=== PATIENT | male | born 1945 | race African-American/Black ===

== ENCOUNTER 2019-03-08 11:55 | Day surgery (SDC) | payer MEDICARE ==
[2019-03-07 13:34] VITALS: BMI 30.2
[~2019-03-08 11:55] MED LIST: Dexamethasone 20 MG/5 ML VIAL ONE; Lidocaine 1% PF 5 ML VIAL ONE; PROPOFOL 200 MG/20 ML VIAL ONE; Succinylcholine Chloride 20 MG/ML 10 ml SYRINGE FS ONE
[2019-03-08] MEDS ORDERED: Bacitracin Zinc Ointment 30 gm TUBE ONE (12:38)
[2019-03-08] MEDS ORDERED: Lidocaine 1% w/Epinephrine 1:100K 20 ML VIAL ONE (12:38)
[2019-03-08] MEDS ORDERED: Fentanyl 100 MCG/2 ML VIAL ONE ×2 (12:48→14:48)
[2019-03-08 13:04] LABS: Hemoglobin 17.4 g/dL (14.0-18.0)
[2019-03-08] MEDS ORDERED: Dexamethasone 20 MG/5 ML VIAL ONE (13:35)
--- NOTE | 2019-03-10 09:40 | OP ---
DATE OF PROCEDURE: 03/08/2019 PREOPERATIVE DIAGNOSES: 1. Thyroglossal duct cyst. 2. Dysphagia. POSTOPERATIVE DIAGNOSES: 1. Thyroglossal duct cyst. 2. Dysphagia. PROCEDURE PERFORMED: Excision of thyroglossal duct cyst ([place] procedure). ESTIMATED BLOOD LOSS: Less than 5 mL. COMPLICATIONS: None. ANESTHESIA: GETA. DESCRIPTION OF PROCEDURE: The patient was taken to the operating room and placed supine on the table. General endotracheal anesthesia was obtained by the anesthesia staff. Tube was secured in the left lower lip. A shoulder roll was placed. The patient's head was gently placed in extension. Following this, 8 mL of 1% lidocaine with 1:100,000 epinephrine was injected into the area overlying the large thyroglossal duct cyst. Following this, the patient was prepped and draped in standard surgical fashion. Following this, a horizontal incision was made in the submental skin crease overlying the thyroglossal duct cyst. Dissection was carried down the midline. The strap muscles were in the midline, a large 3 cm squared cyst was encountered with the fibrotic capsule. It was noted to be coursing superior to the hyoid bone. Bone rongeurs were used to remove the central portion of the hyoid bone and the cyst track terminated into a scar band into the base of tongue musculature. A silk stitch was placed and this was suture ligated and the thyroglossal duct cyst along with the mid portion of the hyoid bone was removed as specimen. Hemostasis was controlled. A small rubber was placed as a drain and the platysmal layer and subcuticular layer were reapproximated using Monocryl stitches. The skin was closed using Prolene stitches. The patient tolerated the procedure well. Job ID: [id number]
== END 2019-03-08 16:45 | disposition home or self-care (01) ==
LOC: SDC 11:55
PROVIDERS: ATTEND Otolaryngology Plastic Surgery within the Head & Neck
PROC: 0WB60ZX Excision of Neck, Open Approach, Diagnostic (ICD-10-PCS; principal; 2019-03-08)
DX: Q89.2 Congenital malformations of other endocrine glands (principal); F17.200 Nicotine dependence, unspecified, uncomplicated; Z79.02 Long term (current) use of antithrombotics/antiplatelets; Z79.899 Other long term (current) drug therapy
CPT/HCPCS: 36415; 85014; 85018; 88305; 93005; 93010; J1100; J2001; J2704; J3010